=== PATIENT | female | born 1935 | race Caucasian/White ===

== ENCOUNTER 2020-01-26 05:51 | Day surgery (SDC) | payer MEDICARE ==
[~2020-01-26] VITALS: Ht 167.6 cm; Wt 76.9 kg
[2020-01-26] MEDS ORDERED: FENTANYL PF 100 MCG/2ML ONE (06:58)
[2020-01-26] MEDS ORDERED: CHLORHEXIDINE 15 ML UDC MM STA (06:58)
[2020-01-26] MEDS ORDERED: LACTATED RINGERS 1,000 ML IV SCH (07:00)
[2020-01-26 07:01] VITALS: BP 169/84
[2020-01-26] MEDS ORDERED: OXYMETAZOLINE NASAL SPRAY 0.05%,30ML ONE (07:18)
[2020-01-26] MEDS ORDERED: LEVO100T5 PO (07:26)
[2020-01-26] MEDS ORDERED: ATOR20TA37 PO (07:26)
[2020-01-26 07:40] LABS: ALANINE AMINOTRANSFERASE 18 U/L (12-78); ALBUMIN 3.7 g/dL (3.4-5.0); ANION GAP 4 mmol/L (5-15); CALCIUM 8.7 mg/dL (8.5-10.1); CHLORIDE 108 mmol/L (98-107); CREATININE 0.76 mg/dL (0.55-1.02)
[2020-01-26 07:43] LABS: ALKALINE PHOSPHATASE 93 U/L (45-117); BILIRUBIN,TOTAL 0.9 mg/dL (0.2-1.0); TOTAL PROTEIN 7.7 g/dL (6.4-8.2)
[2020-01-26] MEDS ORDERED: PROMETHAZINE 25 MG/ML, 1ML IVPush PRN (08:00)
[2020-01-26] MEDS ORDERED: FENTANYL PF 100 MCG/2ML IV PRN (08:00)
[2020-01-26] MEDS ORDERED: MEPERIDINE/PF 25MG/0.5ML IVPush PRN (08:00)
[2020-01-26] MEDS ORDERED: OXYcodone 5 MG/5 ML ORAL.SOL UDC PO PRN (08:00)
[2020-01-26] MEDS ORDERED: HYDROcodone/APAP 7.5-325MG/15ML UDC PO PRN (08:00)
[2020-01-26] MEDS ORDERED: HYDROmorphone 1 MG/ML, 1ML INJ IVPush PRN (08:00)
[2020-01-26] MEDS ORDERED: PROPOFOL 10 MG/ML, 20ML ONE (10:16)
[2020-01-26] MEDS ORDERED: ROCURONIUM 10MG/ML,5ML ONE (10:16)
[2020-01-26] MEDS ORDERED: ONDANSETRON 2MG/ML, 2ML ONE (10:16)
[2020-01-26] MEDS ORDERED: CEFAZOLIN 1,000 MG ONE (10:16)
[2020-01-26] MEDS ORDERED: SUCCINYLCHOLINE 20 MG/ML, 10ML ONE (10:16)
[2020-01-26] MEDS ORDERED: DEXAMETHASONE 4 MG/ML, 1ML ONE (10:16)
== END 2020-01-26 09:50 | disposition home or self-care (01) ==
LOC: OUT 05:51
PROVIDERS: ATTEND Otolaryngology
DX: J38.01 Paralysis of vocal cords and larynx, unilateral (principal); I10 Essential (primary) hypertension; E89.0 Postprocedural hypothyroidism; Z20.828 Contact with and (suspected) exposure to other viral communicable diseases; Z79.899 Other long term (current) drug therapy; Z88.2 Allergy status to sulfonamides
CPT/HCPCS: 31571; 36415; 80053; 87635; 93005; C1878; J0330; J0690; J1100; J2405; J2704; J3010